=== PATIENT | female | born 1965 | race Caucasian/White ===

== ENCOUNTER 2017-07-24 05:51 | Day surgery (SDC) | payer OTHER ==
[2017-07-24] MEDS ORDERED: FENTAnyl 50 MCG/ML VIAL (08:41)
[2017-07-24] MEDS ORDERED: MIDAZOLAM 1 MG/ML 2 ML INJ ×2 (08:41)
== END 2017-07-24 10:19 | disposition home or self-care (01) ==
LOC: GIL 05:51
DX: Z12.11 Encounter for screening for malignant neoplasm of colon (principal); K64.8 Other hemorrhoids
CPT/HCPCS: 45378